=== PATIENT | female | born 1975 | race Two or more races ===

== ENCOUNTER → 2018-01-02 | Emergency (ER) | payer OTHER ==
[~2018-01-02] VITALS: Ht 162.6 cm; Wt 77.1 kg
[~2018-01-02] MED LIST: AVIANE1 TAB; BENADRYL50 MG PO; LEVSIN/SL0.125 MG SL; LUPRON DEP; MOTRIN800 MG PO; PREDNISONE10 MG PO; PROTONIX40 MG PO; SYNTHROID125 MCG PO; ULTRACET PO; ZANTAC300 MG PO; ZOFRAN4 MG PO; ZOFRAN8 MG PO; [UNRECOGNIZED DRUG - OTHER]
== END | disposition home or self-care (01) ==
LOC: ER 13:50
DX: R55 Syncope and collapse (principal)

== ENCOUNTER 2018-03-19 15:36 | Emergency (ER) | payer OTHER ==
[~2018-03-19] VITALS: Ht 162.6 cm; Wt 78.0 kg
[2018-03-19] MEDS ORDERED: FORTAMET500 MG (15:56)
== END 2018-03-19 21:13 ==
LOC: ER 15:36
DX: R55 Syncope and collapse (principal); G44.209 Tension-type headache, unspecified, not intractable; T38.3X5A Adverse effect of insulin and oral hypoglycemic [antidiabetic] drugs, initial encounter; R53.1 Weakness

== ENCOUNTER 2018-11-19 18:28 | Emergency (ER) | payer OTHER ==
[~2018-11-19] VITALS: Ht 162.6 cm; Wt 72.6 kg
[~2018-11-19 18:28] MED LIST changes: +FORTAMET500 MG
== END 2018-11-19 21:28 | disposition home or self-care (01) ==
LOC: ER 18:28
DX: B34.8 Other viral infections of unspecified site (principal)

== ENCOUNTER 2018-12-12 11:57 | Emergency (ER) | payer OTHER ==
[~2018-12-12] VITALS: Ht 162.6 cm; Wt 72.6 kg
[2018-12-12] MEDS ORDERED: AKTOB5 ML OP (13:02)
[2018-12-12] MEDS ORDERED: CONEX SOLUTION118 ML PO (13:03)
== END 2018-12-12 14:57 | disposition home or self-care (01) ==
LOC: ER 11:57
DX: J06.9 Acute upper respiratory infection, unspecified (principal); H10.13 Acute atopic conjunctivitis, bilateral

== ENCOUNTER → 2019-05-01 | Emergency (ER) | payer OTHER ==
[~2019-05-01] VITALS: Ht 162.6 cm; Wt 72.6 kg
[~2019-05-01] MED LIST changes: +AKTOB5 ML OP; +CONEX SOLUTION118 ML PO
== END | disposition home or self-care (01) ==
LOC: ER 00:05
DX: R06.02 Shortness of breath (principal); R22.0 Localized swelling, mass and lump, head; T42.6X5A Adverse effect of other antiepileptic and sedative-hypnotic drugs, initial encounter

== ENCOUNTER 2020-02-09 08:07 | Emergency (ER) | payer OTHER ==
[~2020-02-09] VITALS: Ht 162.6 cm; Wt 72.6 kg
[2020-02-09] MEDS ORDERED: CELECOXIB200 MG PO (14:30)
[2020-02-09] MEDS ORDERED: SKELAXIN800 MG PO (14:30)
== END 2020-02-09 14:39 | disposition home or self-care (01) ==
LOC: ER 08:07
DX: M94.0 Chondrocostal junction syndrome [Tietze] (principal); R07.89 Other chest pain; B34.9 Viral infection, unspecified; Z03.818 Encounter for observation for suspected exposure to other biological agents ruled out

== ENCOUNTER 2020-08-21 11:31 | Emergency (ER) | payer OTHER ==
[~2020-08-21] VITALS: Ht 162.6 cm; Wt 72.6 kg
[~2020-08-21 11:31] MED LIST changes: +CELECOXIB200 MG PO; +SKELAXIN800 MG PO
[2020-08-21] MEDS ORDERED: SYNTHROID100 MCG PO (11:39)
[2020-08-21] MEDS ORDERED: IBU800 MG PO (16:56)
== END 2020-08-21 17:53 | disposition home or self-care (01) ==
LOC: ER 11:31
DX: R07.89 Other chest pain (principal)

== ENCOUNTER 2021-05-19 15:26 | Emergency (ER) | payer OTHER ==
[~2021-05-19] VITALS: Ht 162.6 cm; Wt 73.5 kg
[~2021-05-19 15:26] MED LIST changes: +IBU800 MG PO; +SYNTHROID100 MCG PO
[2021-05-19] MEDS ORDERED: NEURONTIN600 M1 PO (15:47)
[2021-05-19] MEDS ORDERED: CYCLOBENZAPRINE10 MG PO (19:41)
== END 2021-05-19 20:27 | disposition home or self-care (01) ==
LOC: ER 15:26
DX: S40.021A Contusion of right upper arm, initial encounter (principal); W01.0XXA Fall on same level from slipping, tripping and stumbling without subsequent striking against object, initial encounter; Y93.9 Activity, unspecified; Y92.019 Unspecified place in single-family (private) house as the place of occurrence of the external cause; S50.311A Abrasion of right elbow, initial encounter

== ENCOUNTER 2024-06-24 19:12 | Emergency (ER) | payer OTHER ==
[~2024-06-24] VITALS: Ht 162.6 cm; Wt 77.1 kg
[~2024-06-24 19:12] MED LIST changes: +CYCLOBENZAPRINE10 MG PO; +NEURONTIN600 M1 PO
[2024-06-24] MEDS ORDERED: LIPITOR20 MG PO (19:37)
[2024-06-24] MEDS ORDERED: hydrOXYzine PAMOATE 25 MG CAPSULE PO ONE ×2 (20:15→20:28)
[2024-06-24 20:35] LABS: HEMATOCRIT 41.6 % (36.0-45.00); HEMOGLOBIN 13.9 g/dL (12.0-15.00); MEAN CELL VOLUME 76.7 fL (80.00-100.00); MEAN CORPUSCULAR HEMOGLOBIN 25.5 pg (27.00-32.0); MEAN CORPUSCULAR HGB CONC 33.3 g/dl (32.0-36.0); PLATELET COUNT 382 K/uL (150-450); RED BLOOD COUNT 5.42 M/uL (4.00-6.00); RED CELL DISTRIBUTION WIDTH 13.6 % (11.5-14.5)
[2024-06-24 21:02] LABS: ALBUMIN 4.2 gm/dL (3.4-5.0); BILIRUBIN TOTAL 0.55 mg/dL (0.3-1.2); CALCIUM 9.4 mg/dL (8.5-10.1); CREATININE SERUM 0.8 mg/dL (0.55-1.02); GFR 76.24; GLOBULINA 3.8 G/DL (2.4-3.5); POTASSIUM 3.93 mEq/L (3.5-5.1)
[2024-06-24] MEDS ORDERED: VISTARIL50 MG/ML IM (21:36)
== END 2024-06-24 21:37 | disposition home or self-care (01) ==
LOC: ER 19:13
PROVIDERS: General Practice
DX: R55 Syncope and collapse (principal); E03.8 Other specified hypothyroidism; I10 Essential (primary) hypertension; Z91.041 Radiographic dye allergy status; Z88.8 Allergy status to other drugs, medicaments and biological substances

== ENCOUNTER 2024-09-23 16:05 | Emergency (ER) | payer OTHER ==
[~2024-09-23] VITALS: Ht 162.6 cm; Wt 77.6 kg
[~2024-09-23 16:05] MED LIST changes: +LIPITOR20 MG PO; +VISTARIL50 MG/ML IM
[2024-09-23] MEDS ORDERED: FAMOtidine 10 MG/ML (4ML VIAL) IV ONE (17:15)
[2024-09-23] MEDS ORDERED: 0.9 % SODIUM CHLORIDE 1,000 ML IV ONE (17:15)
[2024-09-23] MEDS ORDERED: PIPERACILLIN/TAZOBACTAM SODIUM 3.375 GM VIAL IV ONE (17:15)
[2024-09-23 18:03] LABS: BASO % 0.4 % (0.1-1.2); EOS # 0.22 (0.04-0.54); EOS % 2.6 % (0.7-7.0); LYMPH # 2.46 (1.18-3.74); LYMPH % 29.4 % (19.3-53.1); MEAN PLATELET VOLUME 9.40 fl (9.4-12.4); MONO # 0.54 (0.24-0.82); MONO % 6.5 % (4.7-12.5); NEUT # 5.09 (1.56-6.13); NEUT % 60.9 % (34.0-71.1); RED CELL DISTRIBUTION WIDTH 12.4 % (11.6-14.4)
[2024-09-23 18:08] LABS: ERYTHROCYTE SEDIMENTATION RATE 59 mm/hr (0-20)
[2024-09-23 18:11] LABS: URINE APPEARANCE Clear; URINE BILIRRUBIN Negative (NEGATIVE); URINE BLOOD Small; URINE COLOR Yellow; URINE GLUCOSE Negative (NEGATIVE); URINE KETONE Negative (NEGATIVE); URINE LEUKOCYTE Negative; URINE NITRATE Negative; URINE PROTEIN Negative (NEGATIVE); URINE UROBILINOGEN 0.2 E.U./dl
[2024-09-23 18:12] LABS: URINE BACTERIA 52.7 uL (0.0-1933); URINE EPITHELIAL CELLS 1.5 uL (0.0-38.8); URINE RBC 20.0 uL (0.0-20.8); URINE WBC 4.2 uL (0.0-23.2)
[2024-09-23 18:24] LABS: INR 1.0
[2024-09-23 18:24] LABS: URINE CAST 0.00 uL (0.0-1.40)
[2024-09-23 18:29] LABS: ALT/SGPT 63.0 U/L (12-78); AST/SGOT 41.0 U/L (15-37); BILIRUBIN TOTAL 0.55 mg/dL (0.3-1.2); BUN CREA RATIO 22.0 (7.0-25.0); CREATININE SERUM 0.69 mg/dL (0.55-1.02); GFR 90.43; GLOBULINA 3.7 G/DL (2.4-3.5); GLUCOSE FASTING 114.0 mg/dL (65-100); OSMOLALITY SERUM 277.0 MOSM/KG (275-295)
[2024-09-23] MEDS ORDERED: ORPHENADRINE CITRATE 30 MG/ML AMPUL IM ONE (19:30)
[2024-09-23] MEDS ORDERED: PEPCID AC20 MG PO (20:36)
[2024-09-23] MEDS ORDERED: CEFUROXIME500 MG PO (20:36)
== END 2024-09-23 20:45 | disposition home or self-care (01) ==
LOC: ER 16:30
PROVIDERS: General Practice
DX: T14.8XXA Other injury of unspecified body region, initial encounter (principal); L08.9 Local infection of the skin and subcutaneous tissue, unspecified; E11.9 Type 2 diabetes mellitus without complications; Z91.048 Other nonmedicinal substance allergy status